=== PATIENT | female | born 1960 | race Caucasian/White ===

== ENCOUNTER 2017-11-17 19:49 | Emergency (ER) | payer OTHER ==
[2017-11-17] MEDS: ONDANSETRON 4 MG INJ IV ×2 (21:36→23:42)
[2017-11-17] MEDS: HYDROmorphONE 0.5 MG/0.5 ML SYG IV (21:38)
[2017-11-17] MEDS: PROPOFOL 200 MG INJ IV (22:30)
[2017-11-17] MEDS: HYDROmorphONE 2 MG/ML SYG IV (23:43)
[2017-11-18] MEDS: morphine 4 MG/ML VIAL IM (00:45)
== END 2017-11-18 00:45 | disposition home or self-care (01) ==
LOC: E/R 11-18 00:45
DX: S52.201A Unspecified fracture of shaft of right ulna, initial encounter for closed fracture (principal); W18.39XA Other fall on same level, initial encounter; Y92.9 Unspecified place or not applicable
CPT/HCPCS: 25565; 73110-RT; 94770; 96372; 96374; 96375; 99285-25